=== PATIENT | male | born 1950 | race Caucasian/White ===

== ENCOUNTER 2017-10-26 00:28 | Emergency (ER) | payer OTHER ==
[2017-10-26] MEDS ORDERED: NA CHLORIDE 0.9% 1,000 ML ONE (01:02)
[2017-10-26 01:06] LABS: Absolute Lymphocytes (CBC) 1.6 K/uL (0.7-4.9); Absolute Monocytes 0.6 K/uL (0.1-1.3); Absolute Neutrophil 5.6 K/uL (1.8-8.0); Basophils % 0.8 % (0-1.3); Eosinophils % 0.3 % (0-4.4); Hematocrit 40.9 % (39.6-49.0); Lymphocytes % 19.6 % (15.3-44.8); MCH 33.2 pg (27.0-35.0); MCV 93.8 fL (80-100); MPV 8.7 fL (7.6-11.3); Monocytes % 8.1 % (3.3-12.3); RBC Red Blood Cell Count 4.37 M/uL (4.33-5.43)
[2017-10-26 01:11] LABS: Protime INR 0.96
[2017-10-26 01:23] LABS: Albumin 3.9 g/dL (3.4-5.0); Bilirubin Direct 0.1 mg/dL (0-0.2); Bilirubin Total 0.3 mg/dL (0.2-1.0); CKMB Creatine Kinase MB 6.6 ng/mL (0.3-3.6); Magnesium 2.1 mg/dL (1.8-2.4); Potassium 3.3 mmol/L (3.5-5.1); Protein, Total 7.3 g/dL (6.4-8.2)
[2017-10-26 01:27] LABS: Urine Blood NEGATIVE (NEG); Urine Glucose NEGATIVE (NEG); Urine Protein NEGATIVE (NEG); Urine pH 5.5 (5.0-7.0)
--- NOTE | 2017-10-26 02:29 | ER ---
Nurse's Notes [facility] Name: Josh Devi Age: 67 yrs Sex: Male : 1950 Arrival Date: 10/26/2017 Time: 00:29 Bed 14 Private MD: Diagnosis: Dizziness and giddiness Presentation: 10/26 00:45 Presenting complaint: Patient states: I spent the day at the beach and drank approx 6 tl1 beers and 2 mixed drinks and tonight I woke up feeling nauseated, and was sweating. I vomited 3 times and my blood pressure was high. I feel better now. Transition of care: patient was not received from another setting of care. Onset of symptoms was October 26, 2017. Risk Assessment: Do you want to hurt yourself or someone else? Patient reports no desire to harm self or others. Initial Sepsis Screen: Does the patient meet any 2 criteria? No. Patient's initial sepsis screen is negative. Does the patient have a suspected source of infection? No. Patient's initial sepsis screen is negative. Care prior to arrival: None. 00:45 Method Of Arrival: Ambulatory tl1 00:53 Acuity: TALYA 3 tl1 Historical: - Allergies: 00:49 No Known Allergies; tl1 - Home Meds: 00:49 amlodipine-benazepril 10-40 mg oral cap [Active]; Glucosamine oral oral [Active]; tl1 Prednisone Oral [Active]; - PMHx: 00:49 Hypertension; tl1 - PSHx: 00:49 Knee surgery; tl1 - Immunization history:: Adult Immunizations up to date. - Social history:: Smoking status: Patient uses tobacco products, denies chronic smoking, but will smoke occasionally, Patient uses alcohol, on a daily basis. - Ebola Screening: : Patient negative for fever greater than or equal to 101.5 degrees Fahrenheit, and additional compatible Ebola Virus Disease symptoms Patient denies exposure to infectious person Patient denies travel to an Ebola-affected area in the 21 days before illness onset. Screenin:50 Abuse screen: Denies threats or abuse. Denies injuries from another. Nutritional tl1 screening: No deficits noted. Tuberculosis screening: No symptoms or risk factors identified. Fall Risk IV access (20 points). Assessment: 00:50 General: Appears in no apparent distress. Behavior is calm, cooperative, appropriate tl1 for age. Pain: Denies pain. Neuro: Level of Consciousness is awake, alert, obeys commands, Oriented to person, place, time, situation. Cardiovascular: Denies chest pain. Respiratory: Reports cough that is Airway is patent Trachea midline Respiratory effort is even, unlabored, Breath sounds are clear bilaterally. GI: Abdomen is non-distended, Bowel sounds present X 4 quads. Reports nausea, vomiting. : No signs and/or symptoms were reported regarding the genitourinary system. EENT: No signs and/or symptoms were reported regarding the EENT system. 02:47 Reassessment: Patient and/or family updated on plan of care and expected duration. Pain tl1 level reassessed. Patient is alert, oriented x 3, equal unlabored respirations, skin warm/dry/pink. Patient denies pain at this time. Patient states feeling better. Patient states symptoms have improved. Vital Signs: 00:50 BP 146 / 90; Pulse 74; Resp 17; Temp 98.2; Pulse Ox 98% ; Weight 108.86 kg; Height 5 tl1 ft. 11 in. (180.34 cm); Pain 0/10; 01:53 BP 142 / 90; Pulse 78; Resp 18; Pulse Ox 96% on R/A; Pain 0/10; tl1 02:18 BP 129 / 83; Pulse 71; Resp 16; Pulse Ox 97% on R/A; Pain 0/10; tl1 00:50 Body Mass Index 33.47 (108.86 kg, 180.34 cm) tl1 ED Course: 00:29 Patient arrived in ED. ds1 00:44 Mickey Padilla NP is PHCP. pm1 00:44 Edison Meneses MD is Attending Physician. pm1 00:45 Camilla Chávez RN is Primary Nurse. tl1 00:47 Triage completed. tl1 00:50 Arm band placed on right wrist. tl1 00:50 Patient has correct armband on for positive identification. Bed in low position. Call tl1 light in reach. Side rails up X 1. Adult w/ patient. 01:01 Inserted saline lock: 20 gauge in right antecubital area, using aseptic technique. tl2 Blood collected. 01:11 EKG done, by ED staff, reviewed by Mickey Padilla NP. cb2 01:18 CT Head Brain wo Cont In Process Unspecified. EDMS 01:19 CT completed. Patient tolerated procedure well. Patient moved to CT via wheelchair. Patient moved back from CT. 01:20 Urine collected: clean catch specimen, clear, juan colored. cb2 01:21 X-ray completed. Portable x-ray completed in exam room. Patient tolerated procedure kw well. 01:22 XRAY Chest (1 view) In Process Unspecified. EDMS 02:48 No provider procedures requiring assistance completed. IV discontinued, intact, tl1 bleeding controlled, No redness/swelling at site. Pressure dressing applied. Administered Medications: 01:01 Drug: NS 0.9% 1000 ml Route: IV; Rate: 1000 ml; Site: right antecubital; tl2 02:47 Follow up: IV Status: Completed infusion tl1 Outcome: 02:29 Discharge ordered by MD. pm1 02:48 Discharged to home ambulatory, with family. tl1 02:48 Condition: good 02:48 Discharge instructions given to patient, family, Instructed on discharge instructions, follow up and referral plans. Demonstrated understanding of instructions, follow-up care. 02:49 Patient left the ED. tl1 Signatures: Dispatcher [employer] EDVT Lee Pena Shelly Abraham ds1 Valeria Mendez Tonya, RN RN tl1 Mickey Padilla NP TIE WORKER pm1 Yolanda Sanchez RN RN tl2 Kane Jerry cb2 Corrections: (The following items were deleted from the chart) 00:53 00:45 Acuity: TALYA 2 tl1 tl1
--- NOTE | 2017-10-26 02:30 | EDPHYS ---
Physician Documentation [facility] Name: Josh Devi Age: 67 yrs Sex: Male : 1950 Arrival Date: 10/26/2017 Time: 00:29 Bed 14 Private MD: ED Physician dEison Meneses HPI: 10/26 01:00 This 67 yrs old Male presents to ER via Ambulatory with complaints of pm1 Dizziness. 01:00 The patient presents with dizziness. Onset: The symptoms/episode began/occurred at pm1 23:15. Context: occurred at home, occurred while the patient was waking up. just prior to the episode the patient experienced no apparent symptoms. Modifying factors: The symptoms are alleviated by relaxing, the symptoms are aggravated by stress. Associated signs and symptoms: Pertinent positives: nausea, Pertinent negatives: abdominal pain, chest pain, numbness, palpitations, shortness of breath, tingling, vomiting. Severity of symptoms: in the emergency department the symptoms have resolved Pain is currently a 0 / 10. The patient has not experienced similar symptoms in the past. Patient with consumption of ETOH and spent the day at the beach. No consumption of water. Patient was watching TV on the couch after eating dinner. He woke up feeling dizzy and anxious. Patient has had a history of panic attacks that wake him up from his sleep that require him to calm down by watching TV. His current episode felt like his prior anxiety attacks. Patient does not take any medications for anxiety. patient without any chest pain or shortness of breath. Historical: - Allergies: 00:49 No Known Allergies; tl1 - Home Meds: 00:49 amlodipine-benazepril 10-40 mg oral cap [Active]; Glucosamine oral oral [Active]; tl1 Prednisone Oral [Active]; - PMHx: 00:49 Hypertension; tl1 - PSHx: 00:49 Knee surgery; tl1 - Immunization history:: Adult Immunizations up to date. - Social history:: Smoking status: Patient uses tobacco products, denies chronic smoking, but will smoke occasionally, Patient uses alcohol, on a daily basis. - Ebola Screening: : Patient negative for fever greater than or equal to 101.5 degrees Fahrenheit, and additional compatible Ebola Virus Disease symptoms Patient denies exposure to infectious person Patient denies travel to an Ebola-affected area in the 21 days before illness onset. ROS: 01:00 Constitutional: Negative for fever, chills, and weight loss, Eyes: Negative for injury, pm1 pain, redness, and discharge, ENT: Negative for injury, pain, and discharge, Neck: Negative for injury, pain, and swelling, Cardiovascular: Negative for chest pain, palpitations, and edema, Respiratory: Negative for shortness of breath, cough, wheezing, and pleuritic chest pain, Abdomen/GI: Negative for abdominal pain, nausea, vomiting, diarrhea, and constipation, Back: Negative for injury and pain, MS/Extremity: Negative for injury and deformity, Skin: Negative for injury, rash, and discoloration. 01:00 Neuro: Positive for dizziness, Negative for gait disturbance, numbness, speech changes, syncope, near syncope, tingling, weakness. Exam: 01:00 Constitutional: This is a well developed, well nourished patient who is awake, alert, pm1 and in no acute distress. Head/Face: Normocephalic, atraumatic. Psych: Awake, alert, with orientation to person, place and time. Behavior, mood, and affect are within normal limits. 01:00 Eyes: Pupils equal round and reactive to light, extra-ocular motions intact. Lids and lashes normal. Conjunctiva and sclera are non-icteric and not injected. Cornea within normal limits. Periorbital areas with no swelling, redness, or edema. ENT: Nares patent. No nasal discharge, no septal abnormalities noted. Tympanic membranes are normal and external auditory canals are clear. Oropharynx with no redness, swelling, or masses, exudates, or evidence of obstruction, uvula midline. Mucous membranes moist. Neck: Trachea midline, no thyromegaly or masses palpated, and no cervical lymphadenopathy. Supple, full range of motion without nuchal rigidity, or vertebral point tenderness. No Meningismus. Chest/axilla: Normal chest wall appearance and motion. Nontender with no deformity. No lesions are appreciated. Cardiovascular: Regular rate and rhythm with a normal S1 and S2. No gallops, murmurs, or rubs. Normal PMI, no JVD. No pulse deficits. Respiratory: Lungs have equal breath sounds bilaterally, clear to auscultation and percussion. No rales, rhonchi or wheezes noted. No increased work of breathing, no retractions or nasal flaring. Abdomen/GI: Soft, non-tender, with normal bowel sounds. No distension or tympany. No guarding or rebound. No evidence of tenderness throughout. Back: No spinal tenderness. No costovertebral tenderness. Full range of motion. Skin: Warm, dry with normal turgor. Normal color with no rashes, no lesions, and no evidence of cellulitis. MS/ Extremity: Pulses equal, no cyanosis. Neurovascular intact. Full, normal range of motion. 01:00 Neuro: Orientation: is normal, Mentation: is normal, Cranial nerves: CN II- XII are normal as tested, Cerebellar function: normal finger to nose testing, heel to meyer testing is normal, Motor: moves all fours, strength is normal, strength is 5/5 in all extremities, Sensation: is normal, no obvious gross deficits. Vital Signs: 00:50 BP 146 / 90; Pulse 74; Resp 17; Temp 98.2; Pulse Ox 98% ; Weight 108.86 kg; Height 5 tl1 ft. 11 in. (180.34 cm); Pain 0/10; 01:53 BP 142 / 90; Pulse 78; Resp 18; Pulse Ox 96% on R/A; Pain 0/10; tl1 02:18 BP 129 / 83; Pulse 71; Resp 16; Pulse Ox 97% on R/A; Pain 0/10; tl1 00:50 Body Mass Index 33.47 (108.86 kg, 180.34 cm) tl1 MDM: 00:44 Patient medically screened. pm1 02:28 Data reviewed: vital signs. Data interpreted: Pulse oximetry: on room air is 97 %. pm1 Interpretation: normal. Counseling: I had a detailed discussion with the patient and/or guardian regarding: the historical points, exam findings, and any diagnostic results supporting the discharge/admit diagnosis, lab results, radiology results, the need for outpatient follow up, to return to the emergency department if symptoms worsen or persist or if there are any questions or concerns that arise at home. 10/26 00:53 Order name: Basic Metabolic Panel; Complete Time: 01:30 pm1 10/26 00:53 Order name: CBC with Diff; Complete Time: 01:23 pm1 10/26 00:53 Order name: Ckmb; Complete Time: : pm1 10/26 00:53 Order name: CPK; Complete Time: 01:30 pm10/26 00:53 Order name: LFT's; Complete Time: 01:30 pm10/26 00:53 Order name: Magnesium; Complete Time: 01:30 pm10/26 00:53 Order name: NT PRO-BNP; Complete Time: 01:30 pm10/26 00:53 Order name: PT-INR; Complete Time: 01:30 pm10/26 00:53 Order name: Ptt, Activated; Complete Time: 01:30 pm10/26 00:53 Order name: Troponin (emerg Dept Use Only); Complete Time: 01:23 pm10/26 00:53 Order name: XRAY Chest (1 view); Complete Time: 15:02 pm10/26 00:53 Order name: ETOH Level; Complete Time: 01:30 pm10/26 00:53 Order name: CT Head Brain wo Cont; Complete Time: 15:02 pm10/26 01:21 Order name: Urine Dipstick--Ancillary (enter results); Complete Time: 01:30 eb 10/26 00:53 Order name: EKG; Complete Time: 00:54 pm1 10/26 00:53 Order name: Cardiac monitoring; Complete Time: 00:58 pm10/26 00:53 Order name: EKG - Nurse/Tech; Complete Time: 00:58 pm10/26 00:53 Order name: IV Saline Lock; Complete Time: 01:01 pm10/26 00:53 Order name: Labs collected and sent; Complete Time: 01:01 pm10/26 00:53 Order name: O2 Per Protocol; Complete Time: 00:57 pm10/26 00:53 Order name: O2 Sat Monitoring; Complete Time: 00:57 pm10/26 00:53 Order name: Urine Dipstick-Ancillary (obtain specimen); Complete Time: 01:17 pm1 Administered Medications: 01:01 Drug: NS 0.9% 1000 ml Route: IV; Rate: 1000 ml; Site: right antecubital; tl2 02:47 Follow up: IV Status: Completed infusion tl1 Disposition: 02:49 Co-signature as Attending Physician, Edison Meneses MD. pkl Disposition: 10/26/17 02:29 Discharged to Home. Impression: Dizziness and giddiness. - Condition is Stable. - Discharge Instructions: Dizziness. - Medication Reconciliation Form, Thank You Letter form. - Follow up: Emergency Department; When: As needed; Reason: Worsening of condition. Follow up: Private Physician; When: 2 - 3 days; Reason: Recheck today's complaints, Continuance of care, Re-evaluation by your physician. - Problem is new. - Symptoms have improved. Signatures: Dispatcher [employer] EDMS Edison Meneses MD MD pkl Lasagna, Tonya RN RN tl1 Mickey Padilla NP TAILOR GARMENT FITTER pm1 Yolanda Sanchez RN RN tl2 Corrections: (The following items were deleted from the chart) 02:49 02:29 10/26/2017 02:29 Discharged to Home. Impression: Dizziness and giddiness. tl1 Condition is Stable. Forms are Medication Reconciliation Form, Thank You Letter, Antibiotic Education, Prescription Opioid Use. Follow up: Emergency Department; When: As needed; Reason: Worsening of condition. Follow up: Private Physician; When: 2 - 3 days; Reason: Recheck today's complaints, Continuance of care, Re-evaluation by your physician. Problem is new. Symptoms have improved. pm1
--- NOTE | 2017-10-26 08:09 | RAD REPORT ---
EXAM DESCRIPTION: CT - Head Brain Wo Cont - 10/26/2017 5:18 am CLINICAL HISTORY: DIZZINESS Hypertension, headache. Nausea and vomiting. COMPARISON: No comparisons TECHNIQUE: All CT scans are performed using dose optimization technique as appropriate and may inclu de automated exposure control or mA/KV adjustment according to patient size. FINDINGS: No intracranial hemorrhage, hydrocephalus or extra-axial fluid collection.No areas of brai n edema or evidence of midline shift. The paranasal sinuses and mastoids are clear. The calvarium is intact. IMPRESSION: No acute intracranial abnormality. A preliminary written report was provided at the time of the study, and the report was reviewed prio r to final dictation.
--- NOTE | 2017-10-26 08:46 | RAD REPORT ---
EXAM DESCRIPTION: RAD - Chest Single View - 10/26/2017 1:22 am CLINICAL HISTORY: Dizziness Chest pain. COMPARISON: No comparisons FINDINGS: Portable technique limits examination quality. The lungs are grossly clear. The heart is mildly prominent in size. No displaced fractures. IMPRESSION: No acute intrathoracic process suspected.
--- NOTE | 2017-10-26 12:44 | EKG ---
Test Date: 2017-10-26 Test Time: 01:02:52 Blue Print Control Clerk: MEASUREMENT RESULTS: Intervals: Rate: 70 AL: 180 QRSD: 100 QT: 408 QTc: 440 [place]: P: 53 AL: 180 QRS: 6 T: 50 INTERPRETIVE STATEMENTS: Normal sinus rhythm Normal ECG No previous ECG available for comparison Electronically Signed On 10-26-17 12:44:03 CDT by Mathew Mccall
== END 2017-10-26 02:49 | disposition home or self-care (01) ==
LOC: ER 00:28
DX: R42 Dizziness and giddiness (principal); I10 Essential (primary) hypertension; Z72.0 Tobacco use
CPT/HCPCS: 36415; 70450; 71045; 80048; 80076; 80320; 81003; 82550; 82553; 83735; 83880; 84484; 85025; 85610; 85730; 93005; 96360; 96361; 99284; J7030